=== PATIENT | female | born 1975 | race Caucasian/White ===

== ENCOUNTER 2021-08-07 12:51 | Emergency (ER) | payer MEDICAID ==
[~2021-08-07] VITALS: Ht 160 cm; Wt 67.0 kg
[2021-08-07 12:56] VITALS: BP 134/92
[2021-08-07] MEDS ORDERED: KETOROLAC 60MG/2ML VIAL IM ONE (13:30)
[2021-08-07] MEDS ORDERED: METHOCARBAMOL 500MG TABLET PO ONE (13:30)
[2021-08-07] MEDS ORDERED: NAPR-681 MT (14:46)
[2021-08-07] MEDS ORDERED: METH-773 MT (14:46)
== END 2021-08-07 15:59 | disposition home or self-care (01) ==
LOC: ER 12:51
DX: S16.1XXA Strain of muscle, fascia and tendon at neck level, initial encounter (principal); Z88.0 Allergy status to penicillin; V43.52XA Car driver injured in collision with other type car in traffic accident, initial encounter; Y93.89 Activity, other specified; Y92.488 Other paved roadways as the place of occurrence of the external cause
CPT/HCPCS: 72040; 99283